=== PATIENT | female | born 1940 | race Caucasian/White ===

== ENCOUNTER → 2019-08-03 13:35 | Outpatient (BNVA) | payer MEDICARE, SELFPAY | PROVIDERS: Visit Provider Nurse Practitioner Family | DX: E11.59 Type 2 diabetes mellitus with other circulatory complications (principal); I10 Essential (primary) hypertension | CPT/HCPCS: 80053; 82044; 83036 ==

== ENCOUNTER 2021-03-22 | Outpatient (CLI) | payer MEDICARE, SELFPAY | END 2021-03-22 00:01 | disposition home or self-care (01) | LOC: RAD 09-19 10:27 | PROVIDERS: PCP Nurse Practitioner Family; Visit Provider Specialist | DX: S82.832A Other fracture of upper and lower end of left fibula, initial encounter for closed fracture (principal); S82.853A Displaced trimalleolar fracture of unspecified lower leg, initial encounter for closed fracture | CPT/HCPCS: 87635 ==

== ENCOUNTER 2021-03-23 11:55 | Day surgery (SDC) | payer MEDICARE, SELFPAY ==
[2021-03-22 13:36] VITALS: BMI 26.6
[2021-03-23] VITALS (9 sets, daily range): BP systolic 111–170; BP diastolic 68–115; PULSE 92–104; RESP 16–25; TEMP 36.4–37.3; O2SAT 92–97
--- NOTE | 2021-03-23 | SCC_ITS ---
Procedure Done: Open reduction internal fixation left trimalleolar ankle fracture with fixation of lateral malleolus, medial malleolus, and posterior malleolus. 166.6 seconds of fluoroscopic guidance, for a cumulative dose of 3.4 mGy, was provided to Dr. Ortega by the radiology department. C-arm images of the LEFT ankle were saved for the patient's permanent record. [facility]ITAL[facility]ill
--- NOTE | 2021-03-23 | CT_ITS ---
WS: [id number] NONCONTRAST CT OF THE LEFT ANKLE TECHNIQUE: Noncontrast CT of the left ankle with coronal and sagittal reformatted images. CLINICAL INFORMATION: PRE OP COMPARISON: None. DLP: 118.[address] scans at [facility] use at least one of these dose optimization techniques: automated e xposure control; mA and/or kV adjustment per patient size (includes targeted exams where dose is matc hed to clinical indication); or iterative reconstruction. FINDINGS: Comminuted oblique fracture involving the distal fibula with mild impaction and fracture widening jeremiah suring 4 mm. Slight posterior displacement of the distal fragment. Distal lateral malleolus appears i ntact. Comminuted fractures involving the medial malleolus with extension to the tibial plafond. Exte nsion to the tibial plafond articular surface. This extends to the anterior and posterior cortex of t he distal tibia. Additional posterior malleolar fracture with mild widening of the dorsal fragment me asuring 4.3 mm. This involves the articular surface. Talus appears normal. No talar dome fractures. T iny well-corticated chronic fracture tip of the medial malleolus. Small Achilles enthesophyte. Normal cuboid. Normal cuneiforms. Normal navicular. Normal talonavicular articulation. Visualized metatarsal bases are normal. Diffuse soft tissue edema lower leg and ankle. CT/CT ankle LT wo con* [id number] IMPRESSION: 1. Comminuted fracture involving the distal fibula with mild widening measurin g 4 mm. Slight posterior angulation of the distal fragment. 2. Comminuted fractures involving the medial malleolus extending to the tibial plafond. This involves the articular surface at the tibiotalar articulation. 3. Additional comminuted fracture involving the posterior malleolus with widen ing measuring 4.3 mm. This extends to the articular surface. 4. Talar dome appears normal. No visualized talar dome fractures. 5. Diffuse soft tissue edema lower leg and ankle.
--- NOTE | 2021-03-23 12:06 | XR_ITS ---
WS: [id number] Left ankle, 3 views, 03/23/2021 Clinical Data: S82.832A - Other fracture of upper and lower end of left ... Comparison: Left leg, 03/19/2021. Findings: There is a comminuted fracture of the distal left fibula. There is a fracture of the medial malleolus . The ankle mortise is preserved. There is a fiberglass cast about the ankle. XR/XR ankle LT min 3V* [id number] Impression: Bimalleolar fracture of the left ankle.
[2021-03-23] MEDS: sodium chloride 0.9% 1,000 ML 30 ML IV (13:13)
[2021-03-23] MEDS: acetaminophen 1,000 MG/100 ML PIGGYBACK 400 MG IV (13:13)
[2021-03-23] MEDS: CELEcoxib 200 mg Capsule 400 MG PO (13:16)
[2021-03-23 13:21] LABS: Glucose Point of Care 137 mg/dL (70-110)
--- NOTE | 2021-03-23 13:30 | P.HPUD_ITS ---
Surgery/Procedure H&P Update DATE OF PROCEDURE: March 23, 2021 DATE H&P PERFORMED: 03/22/21 H&P UPDATE INFORMATION: I have reviewed H&P completed within last 30 days, I have examined patient prior to procedure, No changes to prior documentation and H&P is in [facility] EMR on date indicated PREOP DIAGNOSIS: Left trimalleolar ankle fracture PLANNED PROCEDURE: Operation Date: 03/23/21 13:30 Proposed Procedures p ORIF Ankle(Left) - Leora Ortega MD Related Problem List Diagnoses (1) Trimalleolar fracture: Qualifiers: Encounter type: initial encounter Fracture type: closed Laterality: left Qualified Code(s): S82.852A - Displaced trimalleolar fracture of left lower leg, initial encounter for closed fracture
--- NOTE | 2021-03-23 13:35 | ANES.PREANE2 ---
Pre-Anesthetic Assessment Pre-Anesthetic Assessment: Height/Weight: Height 1.65 m Weight 72.575 kg Temp Pulse Resp BP Pulse Ox 99.2 F 92 18 170/88 97 03/23/21 12:59 03/23/21 12:59 03/23/21 12:59 03/23/21 12:59 03/23/21 12:59 Preop Diagnosis: Left trimalleolar ankle fracture Proposed Procedure: Operation Date: 03/23/21 13:30 Proposed Procedures p ORIF Ankle(Left) - Leora Ortega MD Familial anesthetic complications: sister slow to wake Was Beta Kwadwo taken within 24 hours: N/A Was Clonidine taken within 24 hours: N/A Last intake: Intake Last Liquid Date 03/22/21 Last Liquid Time 19:00 Last Solid Date 03/22/21 Last Solid Time 19:00 Last Intake: 19:00 Social: Social History: No alcohol and No tobacco Exam: Pre-Anes Outpt Exam: alert, oriented x 3, clear to auscultation bilaterally and regular rate & rhythm Airway: Submandibular: WNL Cervical ROM: WNL MP: 1 Dentition: False Pulmonary: Pulmonary: Asthma, SHEPARD and SOB CV/HEM: CV/HEM: CAD, HTN and NM (20 yrs ago had NM/CVA ) : : None reported Hepatic: Hepatic: None reported GI: GI: None reported Metabolic: Metabolic: DM Musc/skel: Musc/skel: Lower Back Pain and OA/DJD Neuropsych: Neuropsych: CVA (right side weakness) Anesthetic Plan: ASA status: 3 Anesthesia: General Meds/Allergies Current Medications: Current Medications Generic Name Dose Route Start Last Admin Trade Name Freq PRN Reason Stop Dose Admin Sodium Chloride 1,000 mls @ 30 ml s/hr 03/23/21 13:00 03/23/21 13:13 Sodium Chloride 0.9% IV 03/24/21 12:59 30 mls/hr .Q24H CESIA Administration PFSH Anesthesia PFSH: Medical History HTN (hypertension) Hx of myocardial infarction Hx of stroke without residual deficits Hyperlipemia Type 2 diabetes mellitus with cardiac complication Surgical History Hx of cholecystectomy Hx of hysterectomy Family History Mother Diabetes Father CAD (coronary artery disease) Social History Smoking and tobacco status: former smoker Quit status (tobacco): has quit using tobacco Alcohol intake: never Data Anesthesia Other Labs: Laboratory Results - last 48 hr 03/23/21 13:17 POC Glucose 137 H Cardiac Studies: No Data to Display
[2021-03-23 13:52] LABS: Blood Urine Neg (Negative); Glucose Urine UA Norm (Normal); Ketones Urine Negative (Negative); Nitrate Urine Negative (Negative); Protein Urine Neg (Negative); Specific Gravity, Urine 1.015 (1.005-1.030); Urine Appearance Clear (CLEAR); Urine Color Yellow (Yellow); pH Urine 5 (5-7)
[2021-03-23 13:53] LABS: Basophils % 0.4 %; Eosinophils % 0.1 %; Hemoglobin 12.8 g/dL (11.5-15.3); Lymphocytes # 1.6 10^3/uL (0.8-4.8); Lymphocytes % 17.2 %; Mean Corpuscular HGB Conc 32.8 g/dL (30.0-36.0); Mean Corpuscular Hemoglobin 29.3 pg (28.0-34.0); Mean Corpuscular Volume 89.2 fl (81-99); Monocytes # 0.8 10^3/uL (0.2-0.9); Monocytes % 8.6 %; Neutrophils # 6.95 10^3/uL (1.8-7.7); Neutrophils % 73.3 %; Nucleated Red Blood Cells % 0 %; Platelet Count 287 10^3/cmm (130-400); Red Blood Count 4.37 10^6/uL (4.1-5.3); Red Cell Distribution Width 13.2 % (12.1-15.1); White Blood Count 9.5 10^3/uL (4.0-10.0)
[2021-03-23 13:53] LABS: Add Urine Microscopic? YES; Bilirubin Urine Neg (Negative); Leukocyte Esterase Urine 1+ (Negative); Urobilinogen Urine Norm (Negative)
[2021-03-23 13:57] LABS: Add Urine Culture? No; Bacteria Urine TRACE /hpf; RBC Urine 0-4 /hpf (0-2); Squamous Epithelial Cell Urine 0-4 /hpf (0-5); WBC Urine 0-4 /hpf (0-5)
[2021-03-23 14:00] LABS: Alanine Aminotransferase 17 U/L (0-33); Albumin Level 4.6 g/dL (3.5-5.2); Alkaline Phosphatase 65 IU/L (35-105); Anion Gap 20.1 (5-19); Aspartate Amino Transferase 13 U/L (0-32); Blood Urea Nitrogen 12 mg/dL (8-23); Calcium 9.6 mg/dL (8.5-10.5); Carbon Dioxide 23 mmol/L (22-29); Chloride 97 mmol/L (98-107); Globulin 3.1 g/dL (1.3-4.6); Glucose 132 mg/dL (65-115); Osmolality Calculated 284 mOsm/kg (285-295); Potassium 4.1 mmol/L (3.5-5.1); Sodium 136 mmol/L (136-145); Total Bilirubin 0.8 mg/dL (0.15-1.2); Total Protein 7.7 g/dL (6.6-8.7)
[2021-03-23] MEDS: ceFAZolin 1,000 mg SDV 1000 MG IRRIGATION (15:01)
--- NOTE | 2021-03-23 16:25 | XR_ITS ---
WS: [id number] INTRAOPERATIVE TECHNIQUE: 16 Spot fluoroscopic images for intraoperative purposes. FLUOROSCOPY TIME: 166.6 seconds CLINICAL INFORMATION: ORIF LT. ANKLE COMPARISON: None. FINDINGS: Intraoperative changes plate and screw fixation distal fibula extending to the lateral malleolus. Can nulated screw fixation across the medial malleolus with 2 fixation screws. Fixation screw across the posterior malleolus fracture. Hardware appears in good position. XR/XR ankle LT 1V [id number] IMPRESSION: Images obtained for intraoperative purposes.
--- NOTE | 2021-03-23 16:48 | ANES.PROC ---
Anesthesia Procedures Procedure/Date: 03/23/21 Nerve Block ^: Nerve Block 1: Main Anesthesia: general anesthesia Time Out Performed: Yes Consent: requested by attending/covering physician, from patient, risks and benefits reviewed and patient agrees to proceed Nerve block location: popliteal (L) Anesthesia monitors applied: pulse oximetry, EKG, BP cuff and oxygen Anesthetic Used: ropivicaine 0.5% Amount of anesthesia used (mL): 30 Ultrasound used to: recognize landmarks Interscalene/Femoral BLK: 4 stimuplex 21 g needle used for position and inplane approach, visualize local anesthetic spread and no vascular puncture identified Injection: neg aspiration of heme Patient Tolerated Procedure: well and no complications Complications: none
--- NOTE | 2021-03-23 16:54 | SUR.PHASEI ---
Patient arrived to PACU on gurney, received report and connected to monitors. A time out was completed with Dr Smith and a popiteal block was performed to left leg. Patient tolerated well. Block was completed.
--- NOTE | 2021-03-23 17:16 | PM.OP ---
Operative Report Date of procedure: March 23, 2021 Pre-op Diagnosis: Left trimalleolar ankle fracture Post-op diagnosis: same Post-op Findings: Severe comminution of lateral malleolar fracture. Displaced posterior and lateral malleolar fractures. Procedure Done: Open reduction internal fixation left trimalleolar ankle fracture with fixation of lateral malleolus, medial malleolus, and posterior malleolus. Implants: Wendel 5 hole lateral fibular plate with 2 Fixos screws medially and 1 anterior posterior Fixos screw Specimens removed/disposition: None Pathology: none sent Surgeon: Leora Ortega Seo Expert: [facility] operating room technicians Anesthesia: General (Intubated, ASA 3, with supplemental regional nerve block distally postop) Estimated blood loss (mL): 10 Tourniquet time (min): 90 Tourniquet time: At 250 mmHg IV fluids (mL): 1,100 Urine output (mL): 0 Urine output: No Gomez Complications: None Findings: Severe comminution of the lateral malleolus. Posterior malleolar fracture with displacement. Condition: stable Disposition: PACU (Then to same-day surgery for discharge to home.) Brief History: This 80-year-old woman presented to my office with a left ankle fracture. She was initially seen at [facility]. Patient stated she was walking outside on March 19 when she stepped in a hole injuring her left ankle. She after evaluation, a CT scan was obtained. There was significant displacement of the posterior malleolar fragment and it involved approximately 40% of the joint space. Decision was made to proceed with open reduction internal fixation including posterior malleolar fragment fixation. The patient was consented in the office, and questions were answered. The consents were also signed. Procedure: Patient was seen in the preoperative holding area and leg was marked. Patient was brought to the operating theater and placed on the operating room table. After undergoing adequate general intubated anesthesia, ASA 3 3, with postoperative regional supplemental block, the patient's left lower extremity was prepped and draped in usual fashion utilizing DuraPrep. The leg was draped free. Fluoroscopy was used throughout the surgical procedure. We did have a tourniquet high on the left lower extremity. This was elevated to 250 mmHg and total tourniquet time was 90 minutes. Tourniquet elevation followed exsanguination of the leg. A surgical pause was performed. At the time of the surgical pause we identified the site and side of surgery as well as the patient's identity and availability of equipment. We also confirmed appropriate administration of IV antibiotics. Following the above, an incision was made centering over the patient's lateral malleolar fracture. The incision was continued proximally and distally so that we could place the appropriate size plate. This was a Deyanira lateral fibular plate, 5 hole. We were able to reduce the fracture nearly anatomically with good confucianism of lateral fibular length. There was significant comminution. This was held with a clamp while the plate was attached with standard techniques. We visualized the fracture reduction and plate placement in both AP and lateral planes. We used locking screws to attach the plate. Once the plate was appropriately attached, we irrigated the wound. We then closed the wound with 0 Vicryl in the fascial tissues, 2-0 Monocryl in the subcutaneous tissues, and the skin was closed with skin elke. Attention was then directed to the medial aspect of the ankle. Once again, we used fluoroscopy to determine the appropriate level of the incision as well as palpation over the fracture. An incision was made distal to the fracture to allow placement of the guidewires through the medial malleolar fracture. Two guidewires were placed in appropriate position as visualized in AP and lateral planes. We were then able to place cannulated Fixos screws, each of which was 50 mm in length over the cannulated screws to hold the medial malleolus nicely reduced. Following fixation of the medial malleolus, attention was directed to the posterior malleolar fixation. Once again fluoroscopy was used in AP and lateral planes to determine appropriate position for the anterior posterior screw. A guidewire was placed uneventfully from anterior to posterior with care being taken to protect the soft tissues. A small incision was required for placement of the screw. The fracture was nicely reduced. The screw was passed without difficulty. Once again this was a Fixos screw, and the length was 38 mm. Throughout the surgical procedure and at the conclusion of the procedure we did use fluoroscopy. Fluoroscopy was utilized to determine appropriate positioning of the plate as well as to better evaluate the fractures. At the conclusion we obtained AP and lateral images demonstrating the fracture was anatomically reduced. The medial and anterior incisions were closed with 2-0 Monocryl in the subcutaneous tissues. The skin was then closed with skin elke. Sterile dressing was placed consisting of Xeroform gauze, 4 x 4's, sterile soft roll and an Bereket wrap. The patient was placed in a Cam Walker boot and is to remain nonweightbearing. The procedure was well tolerated without complication. Tourniquet time was 90 minutes at 250 mmHg. the patient was returned to the recovery room, and as noted above, she received a regional block to assist with her pain management. The patient will be discharged home to follow-up in my office as scheduled. Associated Problem List Diagnoses (1) Trimalleolar fracture: Qualifiers: Encounter type: initial encounter Fracture type: closed Laterality: left Qualified Code(s): S82.852A - Displaced trimalleolar fracture of left lower leg, initial encounter for closed fracture
--- NOTE | 2021-03-23 17:51 | PC.NURSE ---
Patient out of surgery today. She lives 2 hours away. Patient is unable to sufficiently utilize cane, crutches, or walker and has cam boot on left leg. Patient has history of falls and recently fell, resulting in this injury. Dr. Ortega placed order for standard wheelchair with left leg rest. Order faxed to HOME.
== END 2021-03-23 18:15 | disposition home or self-care (01) ==
PROVIDERS: PCP Nurse Practitioner Family; Visit Provider Specialist
PROC: (CPT 27823; principal; 2021-03-23 13:30)
DX: S82.852A Displaced trimalleolar fracture of left lower leg, initial encounter for closed fracture (principal); X58.XXXA Exposure to other specified factors, initial encounter; I25.10 Atherosclerotic heart disease of native coronary artery without angina pectoris; I10 Essential (primary) hypertension; I25.2 Old myocardial infarction; E11.9 Type 2 diabetes mellitus without complications; M19.90 Unspecified osteoarthritis, unspecified site; I69.951 Hemiplegia and hemiparesis following unspecified cerebrovascular disease affecting right dominant side; E78.5 Hyperlipidemia, unspecified; Z82.49 Family history of ischemic heart disease and other diseases of the circulatory system; Z83.3 Family history of diabetes mellitus; Z87.891 Personal history of nicotine dependence
CPT/HCPCS: 27823; 36416; 36592; 64450; 73600; 73610; 73700; 76000; 76942; 80053; 81001; 82962; 85025; 96365; C1713; J0690; J2370; J2405; J2704; J2710; J2795; J3010; J3490; J7030

== ENCOUNTER → 2021-04-05 14:57 | Outpatient (BNVA) | payer MEDICARE, SELFPAY | PROVIDERS: PCP Nurse Practitioner Family; Visit Provider Specialist | DX: Z47.89 Encounter for other orthopedic aftercare (principal); S82.852D Displaced trimalleolar fracture of left lower leg, subsequent encounter for closed fracture with routine healing; X58.XXXD Exposure to other specified factors, subsequent encounter | CPT/HCPCS: 73610 ==

== ENCOUNTER → 2021-04-19 12:05 | Outpatient (BNVA) | payer MEDICARE, SELFPAY | PROVIDERS: PCP Nurse Practitioner Family; Visit Provider Specialist | DX: S82.852D Displaced trimalleolar fracture of left lower leg, subsequent encounter for closed fracture with routine healing (principal); X58.XXXD Exposure to other specified factors, subsequent encounter | CPT/HCPCS: 73610 ==

== ENCOUNTER → 2021-05-03 14:43 | Outpatient (BNVA) | payer MEDICARE, SELFPAY | PROVIDERS: PCP Nurse Practitioner Family; Visit Provider Specialist | DX: S82.852D Displaced trimalleolar fracture of left lower leg, subsequent encounter for closed fracture with routine healing (principal); X58.XXXD Exposure to other specified factors, subsequent encounter | CPT/HCPCS: 73610 ==

== ENCOUNTER → 2021-05-31 14:29 | Outpatient (BNVA) | payer MEDICARE, SELFPAY | PROVIDERS: PCP Nurse Practitioner Family; Visit Provider Specialist | DX: S82.853D Displaced trimalleolar fracture of unspecified lower leg, subsequent encounter for closed fracture with routine healing (principal); X58.XXXD Exposure to other specified factors, subsequent encounter | CPT/HCPCS: 73610 ==